=== PATIENT | male | born 1945 | race Hispanic/Latino ===

== ENCOUNTER → 2024-04-29 | Outpatient (CLI) | payer MEDICARE ==
[~2024-04-29] MED LIST: ACET-3194 PO; DOXA4TAB3 PO; GLUC100019 PO; HYDR-4060 PO; IBUP-2077 PO; LOVA10TA2 PO
--- NOTE | 2024-05-03 17:31 | HMCSR ---
APPROVED REPORT EXAM: Two-dimensional and M-mode echocardiogram with Doppler and color Doppler. INDICATION ICD: I51.7 Cardiomegaly 2D Dimensions RVDd3.3 cmLVEF(%)49.3 (>50%)LVED Vol(simp.)72.3 mL IVSd0.9 (0.7-1.1cm)FS(%)25 %LVES Vol(simp.)32.6 mL LVDd4.4 (3.8-5.6cm)LA (2D)3.6 (1.6-4.0cm)LVEF(%, simp.)55 % PWd1.0 (0.7-1.1cm)Ao Root(2D)2.9 (2.0-3.7cm)LA ESV INDEX (BP)25.85 mL/m2 IVSs0.8 cmLVOT diam2.0 (1.8-2.4cm) LVDs3.3 (2.5-4.0cm) PWs0.9 cm M-Mode Dimensions EPSS1.0 cm LA (MM)3.9 (1.6-4.0cm) Ao Root(MM)3.1 (2.0-3.7cm) Aortic Valve AoV Vmax1.5 m/Aftab Peak GR9.5 mmHgLVOT Vmax0.9 m/s AoV VTI0.3 mAo Mean GR4.9 mmHgLVOT VTI0.17 m SHEILA (VMAX)1.7 cm2AVA (VTI) 1.7 cm2 Mitral Valve MV E Vmax73.1 cm/sDECEL Ywml659 msMV Peak GR3 mmHg MV A Vmax91.0 cm/sP 1/2 T73 msMV Mean GR1 mmHg E/A ratio0.8MVA (PHT)3.0 cm2 TDI E/E' Medial7.3E/E' Lateral6.1 Medial E' Peak V10.00 cm/sLateral E' Peak V12.00 cm/s Pulmonary Valve PV Vmax0.9 m/s Tricuspid Valve RAP (EST) 8 mmHgRVSP8.0 mmHg Left Ventricle The left ventricle is normal size. There is normal LV segmental wall motion. There is normal left dima tricular wall thickness. The LVEF is 55-60%. Stage I diastolic dysfunction. Right Ventricle The right ventricle is normal size. The right ventricular systolic function is normal. Atria The left atrium size is normal. The right atrium size is normal. Aortic Valve The aortic valve is normal in structure. No aortic regurgitation is present. There is no aortic valvu lar stenosis. Mitral Valve The mitral valve is normal in structure. There is trace of mitral valve regurgitation noted. There is no mitral valve stenosis. Tricuspid Valve The tricuspid valve is normal in structure. There is trace of tricuspid valve regurgitation noted. Pulmonic Valve The pulmonary valve is normal in structure. There is no pulmonic valvular regurgitation. Great Vessels The aortic root is normal in size. IVC is not well visualized. Pericardium There is no pericardial effusion. Other Information Quality : Adequate Conclusion The LVEF is 55-60%. Stage I diastolic dysfunction.
== END | disposition home or self-care (01) ==
LOC: SHCH 10:22
PROVIDERS: ATTEND Internal Medicine Cardiovascular Disease
DX: I51.89 Other ill-defined heart diseases (principal); I51.7 Cardiomegaly
CPT/HCPCS: 93306